=== PATIENT | female | born 2000 | race Caucasian/White ===

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

== ENCOUNTER 2024-01-08 06:16 | Inpatient (IN) ==
--- OUTSIDE RECORDS SUMMARY | 2024-01-08 06:24 | External Medical Summary | Summary of Care ---
Author Name Unknown Organization [facility] Address [address] [place] [address] Phone [phone] Care Team Providers Care Circuit Recorder Name Role Phone Shante Vaughn Primary Care Provider [phone] Reason for Visit * Reason Comments Healthy Beginnings Return Encounter Details Date Type Department Care Team (Late st Contact Info) Description 01/05/2024 11:45 AM EDT Office Visit Gynecology[facility] [address] [place] [address] BackerDomitila CRNP [address] [place] [address] Decreased movements in third trimester, single or unspecified fetus*; Health counseling; Encounter for supervision of normal first in third trimester Allergies Active Allergy Reactions Criticality Noted Date Comments Amoxicillin-Pot Clavulanate Hives 07/02/19 10 hives Penicillins Hives High 06/13/2019 documented as of this encounter (statuses as of 01/05/2024) Medications Medication Sig Dispensed Refills Start Date End Date Status ondansetron ODT (ZOFRAN) 4 MG TBDPIndications:Per sistent headaches,Intractab le migraine with aura without status migrainosus Place 1 Tab on tongue every 8 hours as needed for Nausea. dissolve on tongue. 20 Tab 1 06/08/2017 Active Proventil HFA 108 (90 Base) MCG/ACT Inhalation Aerosol Solution Inhale 2 Puffs by mouth every 4 hours as needed for Cough, Shortness of Breath or Wheezing (And chest tightness). 1 g 04/28/2022 Active Fluticasone Propionate 50 MCG/ACT Nasal Suspension (Flonase) Use 1 spray in each nostril morning and night. May use following nasal saline 16 g 6 04/28/2022 Active Azelastine HCl 0.1 % Nasal Solution (Astelin) Administer 2 Sprays into nostril in the morning and 2 Sprays before bedtime. 30 mL 5 04/28/2022 Active 19 29-1 MG Oral Tablet ChewableIndications : state, incidental Take 1 Each by mouth in the morning. 100 Tablet 3 05/27/2023 Active documented as of this encounter (statuses as of 01/05/2024) Active Problems Problem Noted Date Diagnosed Date Recurrent major depressive disorder 09/19/2023 ASCUS with positive high risk HPV cervical 06/06 Overview: ASCUS/+HPV pap smear 05/2023 Per [facility] needs repeat pap smear in 1 year -- due 05/2024 Health counseling 05/30/2023 Overview: Problem Action Taken Date entered Entered by Date resolved Depression Discuss options with Provider 05/30/2023 Rose Ramos RN 05/30/2023 First NFP discussed Will think over and let us know at next visit 05/30/2023 Rose Ramos RN 05/30/2023 Nausea and vomiting due to Nutrition Review 9 months booklet 05/30/2023 Rose Ramos RN 05/30/2023 Smoking/tobacco abuse Smoking Education- stopped vaging with + upt 05/30/2023 Rose Ramos RN 05/30/2023 Nutrition Due ddate letter given [facility] 05/30/2023 Rose Ramos RN 05/30/2023 Problem Action Taken Date entered Entered by Date resolved Current needs or questions Patient denies having any current needs or questions 06/27/2023 Rose Ramos RN 06/27/2023 Problem Action Taken Date entered Entered by Date resolved Current needs or questions Patient denies having any current needs or questions 07/25/2023 Rose Ramos RN 07/25/2023 Problem Action Taken Date entered Entered by Date resolved Current needs or questions Patient denies having any current needs or questions 09/09/2023 Rose Ramos RN 09/09/2023 Problem Action Taken Date entered Entered by Date resolved Current needs or questions Patient denies having any current needs or questions 09/23/2023 Estee Garcia RN 09/23/2023 Problem Action Taken Date entered Entered by Date resolved Current needs or questions Patient denies having any current needs or questions 10/14/2023 Estee Garcia RN 10/14/2023 Problem Action Taken Date entered Entered by Date resolved Current needs or questions Patient denies having any current needs or questions 11/11/2023 Estee Garcia RN 11/11/2023 Problem Action Taken Date entered Entered by Date resolved Current needs or questions Patient denies having any current needs or questions 11/25/2023 Estee Garcia RN 11/25/2023 Problem Action Taken Date entered Entered by Date resolved Current needs or questions Patient denies having any current needs or questions 12/06/2023 Rose Ramos RN 12/06/2023 Problem Action Taken Date entered Entered by Date resolved Current needs or questions Patient denies having any current needs or questions 12/13/2023 Estee Garcia RN 12/13/2023 Problem Action Taken Date entered Entered by Date resolved Current needs or questions Patient denies having any current needs or questions 12/20/2023 Rose Ramos RN 12/20/2023 Problem Action Taken Date entered Entered by Date resolved Current needs or questions Patient denies having any current needs or questions 12/27/2023 Estee Garcia RN 12/27/2023 Problem Action Taken Date entered Entered by Date resolved Current needs or questions Patient denies having any current needs or questions 01/03/2024 Rose Ramos RN 01/03/2024 Encounter for supervision of normal first in third trimester 05/30/2023 Maternal asthma complicating Depression complicating , antepartum Former smoker 05/30/2023 Major depressive disorder with single episode Rhinitis, nonallergic 04/28/2022 Deviated nasal septum 04/28/2022 Mild persistent asthma without complication 11/2021 Tobacco use disorder 04/28/2022 Migraine without aura and wi th status migrainosus, not intractable 05/20/2016 Generalized anxiety disorder Estimated Date of Delivery Comme nts Yes 01/04/2024 Based on last me nstrual period of 03/30/2023 documented as of this encounter (statuses as of 01/05/2024) Resolved Problems Problem Noted Date Diagnosed Date Resolved Date Mild intermittent asthma wit h (acute) exacerbation 04/27/2022 04/28/2022 Sinus congestion 05/05/2016 05/18/2017 Abnormal results of liver function studies 05/19/2015 05/18/2017 Mood disorder 02/18/2015 05/05/2019 Alcoholism in family 02/18/2015 022 Otitis externa of left ear 01/07/2015 1 07/19/2016 Otalgia of left ear 05/20/2014 03/09/20 15 Dysfunction of eustachian tube 05/20/2014 03/09/2015 Chronic rhinitis 05/20/2014 04/28/2022 PAIN IN LIMB--left 10/26/2010 5 Otalgia 04/14/2010 03/09/2015 Dysfunction of eustachian tube 04/14/2010 03/09/2015 Cough 04/14/2010 03/09/2015 Asthma with severity to be determined 11/13/2009 04/17/2013 Overview: Per Asthma Taxonomy ICD-10 update of inactive term Headache 07/02/2009 05/18/2017 Overview: ICD-10 update of inactive term Chronic rhinitis 07/02/2009 04/14/2010 Acute URI 07/02/2009 03/09/2015 Acute sinusitis 07/02/2009 03/09/2015 Asthma, allergic 11/13/2009 Allergic rhinitis 04/28/2022 Overview: christopher ferro documented as of this encounter (statuses as of 01/05/2024) Immunizations Name Administration Dates Next Due DTaP Dipth/Tet/Acell Pertussis (Infanrix), Peds 09/02/2005,07/31/2001,2000,09/23,2000 HIB PRP-OMP, 3 dose (Pedvax) 07/31/2001,09/24/19,2000 HPV Vaccine, 9-Valent 02/04/2017 Hepatitis B, 0-19 yrs 07/31/2001,2000,03/01/2001 IPV - Polio Virus Vaccine (Inact) 2005,07/31/2001,2000,07/29 MMR - Measles/Mumps/Rubella Vaccine 09/02/2005,0 07/31/2001 Meningococcal B, 2/3-Dose Se greg (TRUMENBA) 01/13/2021 Meningococcal Conjugate Vacc ine (Menactra/Menveo) 02/04/2017,12/28/2012 Meningococcal MCV4P Conjugat e Vaccine (Menactra) 02/04/2017,12/28/2012 PPD 08/31/2023,11/17/2021,10/01/2020 Pneumococcal Conjugate Vacci ne, 7 Valent 2000,2000,2000 Seasonal Influenza Virus Vac cine, Unspecified Formulation 03/09/2019,04/20/2011,02/11/2009 Seasonal Influenza, PF, 6 M & above, IM , (FluLaval or Fluzone) 06/27/2023,03/09/2019 Seasonal Influenza, Split, I IV3, With Preserve, Inj 04/20/2011,02/11/2009 TDAP (age 10 and older)(Boostrix) 10/14/2023 TDAP, Age 7 and older, IM (Adacel) 12/28/2012 Varicella Vaccine (Chicken Pox) 03/25/2011,07/31 documented as of this encounter Social History Tobacco Use Types Packs/Day Years Used Date Smoking Tobacco: Former Vaporizer Passive Smoke Exposure: Never Smokeless Tobacco: Never Comments:Vapes, cigarettes o cc Alcohol Use Standard Drinks/Week Comments Not Currently 0 (1 standard drink = 0.6 oz pur e alcohol) occasionally PHQ-2 Answer Date Recorded PHQ Adult Total Score 1 04/29/2023 Hunger Vital Sign Answer Date Recorded Within the past 12 months, y ou worried that your food would run out before you got the money to buy more. Never true 08/11/19 24 Within the past 12 months, t he food you bought just didn't last and you didn't have money to get more. Never true 08/11/2023 [place] Depression Scale Answer Date Recorded [place] Depression Scale Total 8 12/20/2023 The thought of harming myself has occurred to me . Never 12/20/2023 Childcare Answer Date Recorded Do you feel overwhelmed with taking care of a child, family member or friend? No 08/11/2023 Does your family need help f inding childcare? (Household - for ages 0-17 years) Not on file 08/11/2023 Clothing Answer Date Recorded Have you been unable to get clothing when it was really needed? No 08/11/2023 Is your family able to get c lothes or diapers when needed? (Household - for ages 0-17 years) Not on file 08/11/2023 Personal Safety Answer Date Recorded Do you feel unsafe or have concerns for your saf ety? No 08/11/2023 Do you have concerns for you r family's safety? (Household - for ages 0-17 years) Not on file 08/11/2023 Utilities Answer Date Recorded Do you have trouble paying y our heating, water, or electric bill? No 08/11/2023 Is your family able to pay t he heat, water, or electric bill? (Household - for ages 0-17 years) Not on file 08/11/2023 Does your family have access to good internet? (Household - for ages 0-17 years) Not on file 08/11/2023 Employment Status Answer Date Recorded Are you unemployed or without regular income? No 08/11/2023 Does the household have a re gular source of income? (Household - for ages 0-17 years) Not on file 08/11/2023 Social Connections Answer Date Recorded How often do you feel lonely or isolated from th ose around you? Never 08/11/2023 Financial Resource Strain Answer Date R ecorded Do you have any trouble payi ng for your medications, or do you think you might in the future? No 08/11/2023 Does your family have troubl e paying for medicine? (Household - for ages 0-17 years) Not on file 08/11/2023 Transportation Needs Answer Date Record ed READ ONLY Do you have troubl e getting a ride to medical visits or work? Never True 08/11/2023 Does your family have a hard time getting a ride to doctors visits? (Household - for ages 0-17 years) Not on file 08/11/2023 Has lack of transportation k ept you from medical appointments, meetings, work, or from getting things needed for daily living? Check all that apply. (Adult - for ages 18 years and over) Not on file 08/11/2023 Do you (or your family) have trouble finding or paying for a ride (transportation)? (Household - for ages 0-17 years) Not on file 08/11/2023 Housing Stability Answer Date Recorded Do you currently live in a s helter or have no steady place to sleep at night? No 08/11/2023 READ ONLY Do you think you a re at risk of becoming homeless? No 08/11/2023 Does your family worry about paying for your home or becoming homeless? (Household - for ages 0-17 years) Not on file 0 08/11/2023 Are you homeless or worried that you might be in the future? (Adult - for ages 18 years and over) Not on file Are you (or your family) mariam eless or worried that you might be in the future? (Household - for ages 0-17 years) Not on file Food Insecurity Answer Date Recorded Do you need food for this week? No 08/11/2023 Are you able to get enough f ood for your family? (Household - for ages 0-17 years) Not on file 08/11/2023 Does your family need food t his week? (Household - for ages 0-17 years) Not on file 08/11/2023 Do you always have enough fo od for your family? (Household - for ages 0-17 years) Not on file 08/11/2023 Estimated Date of Delivery Comme nts Yes 01/04/2024 Based on last me nstrual period of 03/30/2023 Sex and Gender Information Value Date Recorded Sex Assigned at Female 05/10/2019 1:17 PM EST Gender Identity Female 05/10/2019 1:17 PM EST Sexual Orientation Straight 05/10/2019 1: 17 PM EST Job Start Date Occupation Industry Not on file Not on file Not on file documented as of this encounter Last Filed Vital Signs Vital Sign Reading Time Taken Comments Blood Pressure 104/72 01/05/2024 10:54 AM EDT Pulse - - Temperature - - Respiratory Rate - - Oxygen Saturation - - Inhaled Oxygen Concentration - - Weight 89.1 kg (196 lb 6.4 oz) 01/05/2024 10:54 AM EDT Height 160 cm (5' 3") 01/05/2024 10:54 AM EDT Body Mass Index 34.79 01/05/2024 10:54 AM EDT documented in this encounter Progress Notes * Domitila Rowland CRNP - 01/05/2024 11:13 AM EDT ASSESSMENT assessment with Non-stress Test completed on 01/05/2024 at 40.1 weeks gestation for indicationof decreased movement heart baseline: 140 bpm Variability: Moderate Decelerations: absent Accelerations: present Contractions: Present x3 NST start time: 1156 NST stop time: 1223 NST strip reviewed, interpreted, and approved by OB provider, TRICIA Arrington . NST strip stored in clinic storage file ANGELY normal today. Has IOL scheduled on Tuesday. Call sooner prn. TRICIA Arrington documented in this encounter Nursing Notes * Jacqueline Stovall LPN - 01/05/2024 10:54 AM EDT 40w1d ANGELY today 13.3cm documented in this encounter Plan of Treatment Upcoming Encounters Date Type Department Care Team (Late st Contact Info) Description 03/15/2024 3:30 PM EDT Office Visit Allergy/Immunology [facility] [place] [address] [facility] [place], [place] [address] Rosie Mckenna PA-C [address] [place] [address] Health Maintenance Due Date Last Done Comments Pneumococcal Vaccine: Pediat rics (0 to 5 Years) and At-Risk Patients (6 to 64 Years) (1 of 2 - PCV) 2006 HPV (Gardasil) Vaccine (2 - 3-dose series) 03/04/2017 02/04/2017 Influenza Vaccine (FLU shot) (#1) 2024 06/27/2023, 03/09/2019, 03/09/2019, Additional history exists Depression Monitoring 04/29/2024 04/29/2023 Gonorrhea / Chlamydia Screen 05/30/2024 05/30/2023, 05/22/2019 Pap Smear 05/30/2026 05/30/2023, 03/07/2022, 05/11/2021 DTaP,Tdap,and Td Vaccines (8 - Td or Tdap) 10/13/2033 10/14/2023, 12/28/2012, 09/02/2005, Additional history exists Hepatitis B Vaccine Completed 07/31/2001, 2000, 2000 MENINGOCOCCAL (MENACTRA/MENVEO) Completed 02/04/2017, 02/04/2017, 12/28/2012, Additional history exists COVID-19 Vaccine Discontinued documented as of this encounter Medical Devices Not on filedocumented as of this encounter Visit Diagnoses Diagnosis Decreased movements in third trimester, single or unspecified fetus- Primary Health counseling Other specified counseling Encounter for supervision of normal first in third trimester Supervision of normal first documented in this encounter Care Teams Circuit Recorder Relationship Specialty Start Date End Date Shante Vaughn [facility] [address] [facility] [address] PCP - General Family Medicine 07/21/18 documented as of this encounter
--- OUTSIDE RECORDS SUMMARY | 2024-01-08 06:25 | External Medical Summary | Summary of Care ---
Author Name Unknown Organization [facility] Address [address] [place] [address] Phone [phone] Care Team Providers Care Removable Prosthodontist Name Role Phone Shante Vaughn DO Primary Care Provider Reason for Visit * Reason Comments Healthy Beginnings Return Encounter Details Date Type Department Care Team (Late st Contact Info) Description 12/13/2023 10:00 AM EDT Office Visit Gynecology/Obstetri renny [facility] [address] [facility] [place] [address] Ashley Smith CRNP [address] [facility] [place] [address] Nurse Foster [facility] Return Addy [address] [place] [address] Encounter for supervision of normal first in third trimester*; Health counseling; ASCUS with positive high risk HPV cervical Allergies Active Allergy Reactions Criticality Noted Date Comments Amoxicillin-Pot Clavulanate Hives 07/02/19 10 hives Penicillins Hives High 06/13/2019 documented as of this encounter (statuses as of 12/13/2023) Medications Medication Sig Dispensed Refills Start Date End Date Status ondansetron ODT (ZOFRAN) 4 MG TBDPIndications:Per sistent headaches,Intractab le migraine with aura without status migrainosus Place 1 Tab on tongue every 8 hours as needed for Nausea. dissolve on tongue. 20 Tab 1 06/08/2017 Active Additional Information Patient not taking.Reported on 12/13/2023 Proventil HFA 108 (90 Base) MCG/ACT Inhalation [...] the morning. 100 Tablet 3 05/27/2023 Active Cefdinir 300 MG Oral Capsule (Omnicef)Indication s:Acute sinusitis, recurrence not specified, unspecified location Take 1 Capsule by mouth in the morning and 1 Capsule before bedtime. For 10 days.. 20 Capsule 09/12/2023 Active Additional Information Patient not taking.Reported on 09/23/2023 Magnesium 200 MG Oral Tablet ChewableIndications :Migraine with aura and without status migrainosus, not intractable Take 200 mg by mouth in the morning. 100 Tablet 3 09/19/2023 Active Additional Information Patient not taking.Reported on 09/23/2023 documented as of this encounter (statuses as of 12/13/2023) Active Problems Problem Noted Date Diagnosed Date [...] Nutrition Review 9 months booklet 05/30/2023 Rose Ramos, JOSE LUIS 05/30/2023 Smoking/tobacco abuse Smoking Education- stopped vaging with + upt 05/30/2023 Rose Ramos RN 05/30/2023 Nutrition Due ddate letter given [facility] 05/30/2023 Rose Ramos RN 05/30/2023 Problem Action [...] or questions 12/06/2023 Rose Ramos RN 12/06/2023 Encounter for supervision of normal first in [...] as of this encounter (statuses as of 12/13/2023) Resolved Problems Problem Noted Date Diagnosed Date [...] allergic 11/13/2009 Allergic rhinitis 04/28/2022 Overview: christopher bluegrass documented as of this encounter (statuses as of 12/13/2023) Immunizations Name Administration Dates Next Due DTaP Dipth/Tet/Acell Pertussis (Infanrix), Peds 09/02/2005,07/31/2001,2000,09/23,2000 HIB PRP-OMP, 3 dose (Pedvax) 07/31/2001,09/24/19,2000 HPV Vaccine, 9-Valent 02/04/2017 Hepatitis B, 0-19 yrs 07/31/2001,2000,01/2001 IPV - Polio Virus Vaccine (Inact) 2005,07/31/2001,2000,07/29 [...] money to buy more. Never true 08/11/19 Within the past 12 months, t he food you bought just didn't last and you didn't have money to get more. Never true 08/11/2023 [place] Depression Scale Answer Date Recorded [place] Depression Scale Total 7 10/14/2023 The thought of harming myself has occurred to me . Never 10/14/2023 Childcare Answer Date Recorded Do you feel [...] Sign Reading Time Taken Comments Blood Pressure 108/62 12/13/2023 10:08 AM EDT Pulse - - Temperature - - Respiratory Rate - - Oxygen Saturation - - Inhaled Oxygen Concentration - - Weight 89 kg (196 lb 3.2 oz) 12/13/2023 10:08 AM EDT Height 160 cm (5' 3") 12/13/2023 10:08 AM EDT Body Mass Index 34.76 12/13/2023 10:08 AM EDT documented in this encounter Progress Notes * Ashley Smith CRNP - 12/13/2023 10:19 AM EDT 36w6d Was at L&D last week with ?ROM and some contractions. Found to not have ROM or active labor. Since then, having less discharge. Having cramping, but no regular contractions. Baby is active, denies bleeding. GBS today, asking for cervical check. Cervix very high, only able to feel posterior lip of cervix, unable to determine dilation. 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 Name of unemployment specialist: TRICIA Buchanan documented in this encounter Nursing Notes * Estee Garcia RN - 12/13/2023 10:07 AM EDT Patient here for GARY visit/GBS 36w6d + FM Having increased cramping No fluid leaking/bleeding Would like cervical check today Patient seen by [facility] Resource Planner. Patient denies any questions or concerns. Estee Garcia RN documented in this encounter Plan of Treatment Upcoming Encounters Date Type Department Care Team (Late st Contact Info) Description 12/20/2023 10:00 AM EDT Office Visit Gynecology/Obstetrics [facility] [address] [facility] [place] [address] Ashley mSith CRNP [address] [place] [address] Nurse Foster [facility] Return Addy [address] [place] [address] 12/27/2023 10:00 AM EDT Office Visit Gynecology/Obstetrics Lety Hutchison [address] [place] [address] Ashley Smith CRNP [address] [place] [address] Nurse Foster [facility] Return Addy [address] [place] [address] 01/03/2024 10:00 AM EDT Office Visit Gynecology/Obstetrics Lety Hutchison [address] [place] [address] Ashley Smith CRNP [address] [place] [address] Nurse Foster [facility] Return Addy [address] [place] [address] 03/15/2024 3:30 PM EDT Office Visit Allergy/Immunology [place] [address] [place] [address] Rosie Mckenna PA-C [address] [place] [address] Pending Results Name Type Priority Associated Diagnoses Date /Time GROUP B STREP CULTURE/PCR Lab Routine Encounter for supervision of normal first in third trimester 12/13/2023 10:22 AM EDT Scheduled Orders Name Type Priority Associated Diagnoses Orde r Schedule GROUP B STREP CULTURE/PCR Lab Routine Encounter for supervision of normal first in third trimester Expected: 12/13/2023, Expires: 12/12/2024 Health Maintenance Due Date Last Done Comments Pneumococcal Vaccine: Pediat rics (0 to 5 Years) and At-Risk Patients (6 to 64 Years) (1 of 2 - PCV) 2006 HPV (Gardasil) Vaccine (2 - 3-dose series) 03/04/2017 02/04/2017 *SPIROMETRY ONCE FOR ASTHMA-ADULT 12/04/2023 Influenza Vaccine (FLU shot) (#1) 2024 06/27/2023, 03/09/2019, 03/09/2019, Additional history exists Depression Monitoring 04/29/2024 04/29/2023 Gonorrhea / Chlamydia Screen 05/30/2024 05/30/2023, 05/22/2019 Pap Smear 05/30/2026 05/30/2023, 03/0 07/2022, 05/11/2021 DTaP,Tdap,and Td Vaccines (8 - Td or Tdap) 10/13/2033 10/14/2023, 12/28/2012, 09/02/2005, Additional history exists Hepatitis B Vaccine Completed 07/31/2001, 2000, 2000 MENINGOCOCCAL (MENACTRA/MENVEO) Completed 02/04/2017, 02/04/2017, 12/28/2012, Additional history exists COVID-19 Vaccine Discontinued documented as of this encounter Medical Devices Not on filedocumented as of this encounter Visit Diagnoses Diagnosis Encounter for supervision of normal first in third trimester- Primary Supervision of normal first Health counseling Other specified counseling ASCUS with positive high risk HPV cervical documented in this encounter Care Teams Removable Prosthodontist Relationship Specialty Start Date End Date Shante Vaughn DO [address] [place] [address] PCP - General Family Medicine 07/21/18 documented as of this encounter
--- OUTSIDE RECORDS SUMMARY | 2024-01-08 06:25 | External Medical Summary | Summary of Care ---
Author Name Unknown Organization [facility] Address [address] [place] [address] Phone [phone] Care Team Providers Care Classroom Instructor Name Role Phone SamShante franklin DO Primary Care Provider Encounter Details Date Type Department Care Team (Late st Contact Info) Description 12/27/2023 Telephone Gynecology/Obstetrics [facility] [address] [place] [address] Ashley Smith CRNP [address] [place] [address] Allergies Active Allergy Reactions Criticality Noted Date Comments Amoxicillin-Pot Clavulanate Hives 07/02/19 10 hives Penicillins Hives High 06/13/2019 documented as of this encounter (statuses as of 12/27/2023) Medications Medication Sig Dispensed Refills Start Date [...] as of this encounter (statuses as of 12/27/2023) Active Problems Problem Noted Date Diagnosed Date [...] RN 05/30/2023 Nutrition Due ddate letter given [facility] 05/30/2023 Rose Ramos RN 05/30/2023 Problem Action [...] or questions 12/27/2023 Estee Garcia RN 12/27/2023 Encounter for supervision of normal first in [...] as of this encounter (statuses as of 12/27/2023) Resolved Problems Problem Noted Date Diagnosed Date [...] as of this encounter (statuses as of 12/27/2023) Immunizations Name Administration Dates Next Due DTaP Dipth/Tet/Acell Pertussis (Infanrix), Peds 09/02/2005,07/31/2001,2000,09/23,2000 HIB PRP-OMP, 3 dose (Pedvax) 07/31/2001,09/24/19 01,2000 HPV Vaccine, 9-Valent 02/04/2017 Hepatitis B, 0-19 [...] money to get more. Never true 08/11/2023 [place] Depression Scale Answer Date Recorded [place] Depression Scale Total 8 12/20/2023 The thought [...] on file documented as of this encounter Miscellaneous Notes * Telephone Encounter - Estee Garcia RN - 12/27/2023 10:29 AM EDT Patient's IOL was rescheduled for 8/19 , please update schedule/make crutching contractor provider aware. Pt is aware. documented in this encounter Plan of Treatment Upcoming Encounters Date Type Department Care Team (Late st Contact Info) Description 01/03/2024 10:00 AM EDT Office Visit Gynecology/Obstetrics Lety Hutchison [address] [facility] [place] [address] Ashley Smith CRNP [address] [place] [address] Nurse Foster Healthy Beginnings Return Addy [address] [place] [address] 03/15/2024 3:30 PM EDT Office Visit Allergy/Immunology [facility] [address] [place] [address] Rosie Mckenna PA-C 200 [facility] [place] [address] Health Maintenance Due Date Last Done Comments [...] Not on filedocumented as of this encounter Care Teams Classroom Instructor Relationship Specialty Start Date End Date Shante Vaughn DO [address] [place] [address] PCP - General Family Medicine 07/21/18 documented as of this encounter
--- OUTSIDE RECORDS SUMMARY | 2024-01-08 06:25 | External Medical Summary | Summary of Care ---
Author Name Unknown Organization [facility] Address [address] [place] [address] Phone [phone] Care Team Providers Care Face And Fill Packer Name Role Phone Shante Vaughn DO Primary Care Provider Reason for Visit * Reason Comments Healthy Beginnings Return Encounter Details Date Type Department Care Team (Late st Contact Info) Description 01/03/2024 10:00 AM EDT Office Visit Gynecology/Obstetri renny Hutchison [address] [facility] [place] [address] Ashley Smith CRNP [address] [facility] [place] [address] Nurse Foster Healthy Beginnings Return Addy [address] [place] [address] Encounter for supervision of normal first in third trimester*; Health counseling; ASCUS with positive high risk HPV cervical Allergies Active Allergy Reactions Criticality Noted Date Comments Amoxicillin-Pot Clavulanate Hives 07/02/19 10 hives Penicillins Hives High 06/13/2019 documented as of this encounter (statuses as of 01/03/2024) Medications Medication Sig Dispensed Refills Start Date [...] as of this encounter (statuses as of 01/03/2024) Active Problems Problem Noted Date Diagnosed Date [...] RN 05/30/2023 Nutrition Due ddate letter given [facility] 05/30/2023 Rose Ramos RN 05/30/2023 Problem Action [...] as of this encounter (statuses as of 01/03/2024) Resolved Problems Problem Noted Date Diagnosed Date [...] Asthma, allergic 11/13/2009 Allergic rhinitis 04/28/2022 Overview: [place] documented as of this encounter (statuses as of 01/03/2024) Immunizations Name Administration Dates Next Due DTaP [...] money to get more. Never true 08/11/2023 Romance Depression Scale Answer Date Recorded Romance Depression Scale Total 8 12/20/2023 The thought [...] Sign Reading Time Taken Comments Blood Pressure 108/68 01/03/2024 10:07 AM EDT Pulse - - Temperature - - Respiratory Rate - - Oxygen Saturation - - Inhaled Oxygen Concentration - - Weight 88.9 kg (196 lb) 01/03/2024 10:07 AM EDT Height - - Body Mass Index 34.72 12/27/2023 10:15 AM EDT documented in this encounter Progress Notes * Ashley Smith CRNP - 01/03/2024 10:27 AM EDT 39w6d No concerns. Hoping to deliver soon. Baby is active. No regular contractions, just some cramping. Denies bleeding or LOF. Asking for cervical check. Cervix ?1cm/high. Difficult to reach. Has IOL 01/08. Certified Appliance Service Technician Documentation Provider requested biological aide. Name of biological aide: TRICIA Buchanan * Katelyn Gay MED ASSIST - 01/03/2024 10:07 AM EDT 39w6d Denies vaginal bleeding/rom + movements Requesting cervical check today documented in this encounter Nursing Notes * Rose Ramos RN - 01/03/2024 10:32 AM EDT Patient seen by [facility] Baby Attendant. documented in this encounter Plan of Treatment Upcoming Encounters Date Type Department Care Team (Late st Contact Info) Description 03/15/2024 3:30 PM EDT Office Visit Allergy/Immunology [place] 200 [facility] [place] [address] Rosie Mckenna PA-C 200 [facility] [place] [address] Health Maintenance Due Date Last Done Comments [...] cervical documented in this encounter Care Teams Face And Fill Packer Relationship Specialty Start Date End Date Shante Vaughn DO [address] [facility] [address] PCP - General Family Medicine 07/21/18 documented as of this encounter
--- OUTSIDE RECORDS SUMMARY | 2024-01-08 06:25 | External Medical Summary ---
Author Name Unknown Address Unknown Organization K01:[facility] [address] [place] [address] Laboratory Report Ordering Provider Test Date Status CONSTANCE CORMIER 12/13/2023 10:22:03 Final Observation Date Value Abnormality Reference (Units ) Status Streptococcus agalactiae DNA [Presence] in Specimen by EVI with probe detection 12/13/2023 10:22:03 Negative Negative Final No Group B Streptococcus det ected by culture-enhanced PCR (amplified probe). GBS GBSCT - [facility] 12/13/2023 10:22:03 0.0 Final GBS SPCCT - [facility] 12/13/2023 10:22:03 32.2 Final Performing Location [facility] - [address] [place] [address]
--- OUTSIDE RECORDS SUMMARY | 2024-01-08 06:25 | External Medical Summary | Summary of Care ---
Author Name Unknown Organization [facility] Address [address] [place] [address] Phone [phone] Care Team Providers Care Administrative Services Assistant Name Role Phone Shante Vaughn Primary Care Provider Reason for Visit * Reason Comments Return Visit Encounter Details Date Type Department Care Team (Late st Contact Info) Description 12/27/2023 10:00 AM EDT Office Visit Gynecology/Obstetri cs Namryan Hutchison [address] [facility] [place] [address] Ashley Smith CRNP [address] [facility] [place] [address] Nurse Foster Healthy Beginnings Return Addy [address] [place] [address] Encounter for supervision of normal first in [...] RN 05/30/2023 Nutrition Due ddate letter given [facility] 05/30/2023 Rose Ramos RN 05/30/2023 Problem Action [...] money to get more. Never true 08/11/2023 [place] Depression Scale Answer Date Recorded [place] Depression Scale Total 8 12/20/2023 The thought [...] Sign Reading Time Taken Comments Blood Pressure 110/66 12/27/2023 10:15 AM EDT Pulse - - Temperature - - Respiratory Rate - - Oxygen Saturation - - Inhaled Oxygen Concentration - - Weight 89.4 kg (197 lb) 12/27/2023 10:15 AM EDT Height 160 cm (5' 3") 12/27/2023 10:15 AM EDT Body Mass Index 34.9 12/27/2023 10:15 AM EDT documented in this encounter Progress Notes * Ashley Smith CRNP - 12/27/2023 10:27 AM EDT 38w6d No concerns. Baby is active. No regular contractions, no bleeding or LOF. IOL 01/08 TRICIA Calabrese * Wendie Whitley LPN - 12/27/2023 10:15 AM EDT 38w6d Denies any issues documented in this encounter Nursing Notes * Estee Garcia RN - 12/27/2023 10:31 AM EDT Patient seen by [facility] Foreman Or Supervisor And Operator. Patient denies any questions or concerns. Estee Garcia RN documented in this encounter Plan of Treatment Upcoming Encounters Date Type Department Care Team (Late st Contact Info) Description 01/03/2024 10:00 AM EDT [facility] [address] [place] [address] Ashley Smith CRNP [address] [place] [address] Nurse Foster Healthy Beginnings Return Addy [address] [place] [address] 03/15/2024 3:30 PM EDT Office Visit Allergy/Immunology [place] 200 [facility] [place] [address] Rosie Mckenna PA-C 200 [facility] [place] [address] Health Maintenance Due Date Last Done Comments [...] cervical documented in this encounter Care Teams Administrative Services Assistant Relationship Specialty Start Date End Date Shante Vaughn DO [address] [facility] [place] [address] PCP - General Family Medicine 07/21/18 documented as of this encounter
--- OUTSIDE RECORDS SUMMARY | 2024-01-08 06:25 | External Medical Summary | Summary of Care ---
Author Name Unknown Organization [facility] Address [address] [place] [address] Phone [phone] Care Team Providers Care Refrigeration Operator Name Role Phone SamShante franklin DO Primary Care Provider Encounter Details Date Type Department Care Team (Late st Contact Info) Description 12/20/2023 Telephone Gynecology/Obstetrics [facility] [address] [place] [address] Ashley Smith CRNP [address] [place] [address] Allergies Active Allergy Reactions Criticality Noted Date Comments Amoxicillin-Pot Clavulanate Hives 07/02/19 10 hives Penicillins Hives High 06/13/2019 documented as of this encounter (statuses as of 12/20/2023) Medications Medication Sig Dispensed Refills Start Date [...] as of this encounter (statuses as of 12/20/2023) Active Problems Problem Noted Date Diagnosed Date [...] RN 05/30/2023 Nutrition Due ddate letter given [facility] 05/30/2023 Rose Ramos RN 05/30/2023 Problem [...] or questions 12/20/2023 Rose Ramos RN 12/20/2023 Encounter for supervision of normal first in [...] as of this encounter (statuses as of 12/20/2023) Resolved Problems Problem Noted Date Diagnosed Date [...] as of this encounter (statuses as of 12/20/2023) Immunizations Name Administration Dates Next Due DTaP [...] money to get more. Never true 08/11/2023 [place] Depression Scale Answer Date Recorded [place] Depression Scale Total 7 10/14/2023 The thought [...] 08/11/2023 Does the household have a re lar source of income? (Household - for ages [...] on file documented as of this encounter Plan of Treatment Upcoming Encounters Date Type Department Care Team (Late st Contact Info) Description 12/27/2023 10:00 AM EDT Office Visit Gynecology/Obstetrics Lety Hutchison [address] [place] [address] Ashley Smith CRNP [address] [place] [address] Nurse Foster Healthy Beginnings Return Addy [address] [place] [address] 01/03/2024 10:00 AM EDT Office Visit Gynecology/Obstetrics Lety Hutchison [address] [place] [address] Ashley Smith CRNP [address] [place] [address] Nurse Foster [facility]nings Return Addy [address] [place] [address] 03/15/2024 3:30 PM EDT Office Visit Allergy/Immunology [place] 200 [facility] [place] [address] Rosie Mckenna PA-C 200 [facility] [place] [address] Health Maintenance Due Date Last Done Comments [...] Completed 02/04/2017, 02/04/2017, 12/28/2012, Additional history exists HIV Screening Completed 05/30/2023 Hepatitis C Screening Completed 05/30/2023 , 05/30/2023, 05/30/2023 COVID-19 Vaccine Discontinued documented as of this encounter Medical Devices Not on filedocumented as of this encounter Care Teams Refrigeration Operator Relationship Specialty Start Date End Date Shante Vaughn DO [address] [place] [facility] [place] [address] PCP - General Family Medicine 07/21/18 documented as of this encounter
--- OUTSIDE RECORDS SUMMARY | 2024-01-08 06:25 | External Medical Summary | Summary of Care ---
Author Name Unknown Organization [facility] Address [address] [place] [address] Phone [phone] Care Team Providers Care Deputy Treasurer Name Role Phone Shante Vaughn Primary Care Provider Reason for Visit * Reason Comments Healthy Beginnings Return Encounter Details Date Type Department Care Team (Late st Contact Info) Description 12/20/2023 10:00 AM EDT Office Visit Gynecology/Obstetri renny Hutchison [address] [email or web address] [place] [address] Ashley Smith CRNP [address] [place] [address] Nurse Foster Healthy Beginnings Return Addy [address] [place] [address] Encounter for supervision of normal first in third trimester*; Health counseling; ASCUS with positive high risk HPV cervical Allergies Active Allergy Reactions Criticality Noted Date Comments Amoxicillin-Pot Clavulanate Hives 07/02/19 10 hives Penicillins Hives High 06/13/2019 documented as of this encounter (statuses as of 12/20/2023) Medications Medication Sig Dispensed Refills Start Date End Date Status ondansetron ODT (ZOFRAN) 4 MG TBDPIndications:P ersistent headaches,Intract able migraine with aura without status migrainosus Place [...] 04/28/2022 Active 19 29-1 MG Oral Tablet ChewableIndicatio ns: state, incidental Take 1 Each by mouth in the morning. 100 Tablet 3 05/27/2023 Active Cefdinir 300 MG Oral Capsule (Omnicef)Indicati ons:Acute sinusitis, recurrence not specified, unspecified location Take 1 Capsule by mouth in the morning and 1 Capsule before bedtime. For 10 days.. 20 Capsule 09/12/2023 4 Discontinue d(Medicatio n List Clean Up) Magnesium 200 MG Oral Tablet ChewableIndicatio ns:Migraine with aura and without status migrainosus, not intractable Take 200 mg by mouth in the morning. 100 Tablet 3 09/19/2023 4 Discontinue d(Medicatio n List Clean Up) documented as of this encounter (statuses as [...] us know at next visit 05/30/2023 Rose Ramos, JOSE LUIS 05/30/2023 Nausea and vomiting due to Nutrition Review 9 months booklet 05/30/2023 Rose Ramos, JOSE LUIS 05/30/2023 Smoking/tobacco abuse Smoking Education- stopped vaging with + upt 05/30/2023 Rose Ramos, JOSE LUIS 05/30/2023 Nutrition Due ddate letter given [facility] 05/30/2023 Rose Ramos, JOSE LUIS 05/30/2023 Problem Action Taken Date entered Entered [...] any current needs or questions 10/14/2023 Estee Garcia, JOSE LUIS 10/14/2023 Problem Action Taken Date entered Entered by Date resolved Current needs or questions Patient denies having any current needs or questions 11/11/2023 Estee Garcia, JOSE LUIS 11/11/2023 Problem Action Taken Date entered Entered by Date resolved Current needs or questions Patient denies having any current needs or questions 11/25/2023 Estee Garcia, RN 11/25/2023 Problem Action Taken Date entered [...] Vaccine, 9-Valent 02/04/2017 Hepatitis B, 0-19 yrs 07/31/2001,2000,0301/2001 IPV - Polio Virus Vaccine (Inact) 2005,07/31/2001,2000,07/29 [...] money to get more. Never true 08/11/2023 [place] Depression Scale Answer Date Recorded [place] Depression Scale Total 7 10/14/2023 The thought [...] Sign Reading Time Taken Comments Blood Pressure 116/74 12/20/2023 9:57 AM EDT Pulse - - Temperature - - Respiratory Rate - - Oxygen Saturation - - Inhaled Oxygen Concentration - - Weight 88.9 kg (196 lb) 12/20/2023 9:57 AM EDT Height 160 cm (5' 3") 12/20/2023 9:57 AM EDT Body Mass Index 34.72 12/20/2023 9:57 AM EDT documented in this encounter Progress Notes * Ashley Smith CRNP - 12/20/2023 10:19 AM EDT 37w6d No concerns. Some irregular contractions, denies LOF, bleeding. Baby is active. Discussed IOL around 41w, is agreeable. TRICIA Calabrese documented in this encounter Nursing Notes * Rose Ramos RN - 12/20/2023 10:11 AM EDT Patient seen by [facility] Insulation Packer. * Jacqueline Stovall LPN - 12/20/2023 10:01 AM EDT 37w6d Denies concerns documented in this encounter Plan of Treatment Upcoming Encounters Date Type Department Care Team (Late st Contact Info) Description 12/27/2023 10:00 AM EDT Office Visit Gynecology/Obstetrics Lety Hutchison [address] [place] [address] Ashley Smith CRNP [address] [place] [address] Nurse Foster Healthy Beginning Return Addy [address] [place] [address] 01/03/2024 10:00 AM EDT Office Visit Gynecology/Obstetrics Lety Hutchison [address] [place] [address] Ashley Smith CRNP [address] [place] [address] [facility] Return Addy [address] [place] [address] 03/15/2024 3:30 PM EDT Office Visit Allergy/Immunology [facility] 200 [place] [address] Rosie Mckenna PA-C 200 [facility] [place] [address] Health Maintenance Due Date Last Done Comments [...] cervical documented in this encounter Care Teams Deputy Treasurer Relationship Specialty Start Date End Date Shante Vaughn DO [address] [place] [address] PCP - General Family Medicine 07/21/18 documented as of this encounter
--- OUTSIDE RECORDS SUMMARY | 2024-01-08 06:25 | External Medical Summary | Summary of Care ---
Author Name Unknown Organization [facility] Address [address] [place] [address] Phone [phone] Care Team Providers Care Hospice Liaison Name Role Phone SamShante franklin DO Primary Care Provider Encounter Details Date Type Department Care Team (Late st Contact Info) Description 12/20/2023 Telephone Gynecology/Obstetrics [facility] [address] [place] [address] Ashley Smith CRNP [address] [place] [address] Allergies Active Allergy Reactions Criticality Noted Date [...] Depression Discuss options with Provider 05/30/2023 Rose Raoms RN 05/30/2023 First NFP discussed Will think over and let us know at next visit 05/30/2023 Rose Ramos RN 05/30/2023 Nausea and vomiting due to Nutrition Review 9 months booklet 05/30/2023 Rose Ramos RN 05/30/2023 Smoking/tobacco abuse Smoking Education- stopped vaging with + upt 05/30/2023 Rose Ramos RN 05/30/2023 Nutrition Due ddate letter given [facility] 05/30/2023 Rose Ramos RN 05/30/2023 Problem [...] money to get more. Never true 08/11/2023 [place] Depression Scale Answer Date Recorded [place] Depression Scale Total 7 10/14/2023 The thought [...] Gynecology/Obstetrics Lety Hutchison [address] [place] [address] Ashley Smith CRNP [address] [place] [address] Nurse Foster [facility] Beginnings Return Addy [address] [place] [address] 01/03/2024 10:00 AM EDT Office Visit Gynecology/Obstetrics Lety Hutchison [address] [place] [address] Ashley Smith CRNP [address] [place] [address] Nurse Foster Healthy Beginnings Return Addy [address] [place] [address] 03/15/2024 3:30 PM EDT Office Visit Allergy/Immunology [place] [address] [place] [address] Rosie Mckenna PA-C [address] [place] [address] Health Maintenance Due Date Last Done Comments [...] filedocumented as of this encounter Care Teams Hospice Liaison Relationship Specialty Start Date End Date Shante Vaughn DO [address] [place] [facility] [place] [address] PCP - General Family Medicine 07/21/18 documented as of this encounter
--- OUTSIDE RECORDS SUMMARY | 2024-01-08 06:25 | External Medical Summary | Summary of Care ---
Author Name Unknown Organization [facility] Address [address] [place] [address] Phone [phone] Care Team Providers Care Hand Scudder Name Role Phone Shante Vaughn Primary Care Provider Encounter Details Date Type Department Care Team (Late st Contact Info) Description 12/07/2023 Result Scan Unspecified Department <No scans attached> Allergies Active Allergy Reactions Criticality Noted Date Comments Amoxicillin-Pot Clavulanate Hives 07/02/19 10 hives Penicillins Hives High 06/13/2019 documented as of this encounter (statuses as of 12/08/2023) Medications Medication Sig Dispensed Refills Start Date [...] as of this encounter (statuses as of 12/08/2023) Active Problems Problem Noted Date Diagnosed Date [...] RN 05/30/2023 Nutrition Due ddate letter given [facility] 05/30/2023 Rose Ramos RN 05/30/2023 Problem [...] as of this encounter (statuses as of 12/08/2023) Resolved Problems Problem Noted Date Diagnosed Date [...] as of this encounter (statuses as of 12/08/2023) Immunizations Name Administration Dates Next Due DTaP [...] money to get more. Never true 08/11/2023 [place] Depression Scale Answer Date Recorded [place] Depression Scale Total 7 10/14/2023 The thought [...] No 08/11/2023 Does the household have a [facility] source of income? (Household - for ages [...] Description 12/13/2023 10:00 AM EDT Office Visit Gynecology/Obstetrics Lety Hutchison [address] [place] [address] Ashley Smith CRNP [address] [place] [address] Nurse Foster [facility]nings Return Addy [address] [place], [place] [address] 12/20/2023 10:00 AM EDT Office Visit Gynecology/Obstetrics Lety Hutchison [address] [place], [place] [address] Ashley Smith, RESIDENTIAL DRIVER [address] [place] [address] Nurse Foster [facility] Beginnings Return Addy [address] [place], [place] [address] 12/27/2023 10:00 AM EDT Office Visit Gynecology/Obstetrics Lety Hutchison [address] [place], [place] [address] Ashley Smith, RESIDENTIAL DRIVER [address] [place], [place] [address] Nurse Foster [facility]nings Return Addy [address] [place], [place] [address] 01/03/2024 10:00 AM EDT Office Visit Gynecology/Obstetrics Lety Hutchison [address] [place] [address] Ashley Smith, RESIDENTIAL DRIVER [address] [place], [place] [address] Nurse Foster [facility]nings Return Addy [address] [place], [place] [address] 03/15/2024 3:30 PM EDT Office Visit Allergy/Immunology [facility] [place] [address] [facility] [place] [address] Rosie Mckenna PA-C [address] [place] [address] Health Maintenance Due Date Last Done Comments [...] 05/30/2024 05/30/2023, 05/22/2019 Pap Smear 05/30/2026 05/30/2023, 07/2022, 05/11/2021 DTaP,Tdap,and Td Vaccines (8 - Td or Tdap) 10/13/2033 10/14/2023, 12/28/2012, 09/02/2005, Additional history exists Hepatitis B Vaccine Completed 07/31/2001, 2000, 2000 MENINGOCOCCAL (MENACTRA/MENVEO) Completed 02/04/2017, 02/04/2017, 12/28/2012, Additional history exists COVID-19 Vaccine Discontinued documented as of this encounter Medical Devices Not on filedocumented as of this encounter Procedures Procedure Name Priority Date/Time Associated Diagnosis Comments OUTSIDE LAB RESULTS 12/07/2023 documented in this encounter Results * OUTSIDE LAB RESULTS (12/07/2023) 12/07/2023 No Physician Data Unknown LABORATORY documented in this encounter Care Teams Hand Scudder Relationship Specialty Start Date End Date Shante Vaughn DO [address] [place] [address] PCP - General Family Medicine 07/21/18 documented as of this encounter
--- OUTSIDE RECORDS SUMMARY | 2024-01-08 06:25 | External Medical Summary | Summary of Care ---
Author Name Unknown Organization [facility] Address [address] [place] [address] Phone [phone] Care Team Providers Care Sugar Controller Name Role Phone Shante Vaughn Primary Care Provider Reason for Visit * Reason Onset Date Comments Fax 12/15/2023 Encounter Details Date Type Department Care Team (Late st Contact Info) Description 12/15/2023 Telephone Gynecology/Obstetrics [facility] [address] [place] [address] Services, Scheduling [address] [place] [address] Fax Allergies Active Allergy Reactions Criticality Noted Date Comments Amoxicillin-Pot Clavulanate Hives 07/02/19 10 hives Penicillins Hives High 06/13/2019 documented as of this encounter (statuses as of 12/15/2023) Medications Medication Sig Dispensed Refills Start Date [...] as of this encounter (statuses as of 12/15/2023) Active Problems Problem Noted Date Diagnosed Date [...] RN 05/30/2023 Nutrition Due ddate letter given [facility] 05/30/2023 Rose Ramos RN 05/30/2023 Problem [...] or questions 12/13/2023 Estee Garcia RN 12/13/2023 Encounter for supervision of normal first in [...] as of this encounter (statuses as of 12/15/2023) Resolved Problems Problem Noted Date Diagnosed Date [...] as of this encounter (statuses as of 12/15/2023) Immunizations Name Administration Dates Next Due DTaP [...] money to get more. Never true 08/11/2023 [place] Depression Scale Answer Date Recorded [place] Depression Scale Total 7 10/14/2023 The thought [...] No 08/11/2023 Does the household have a [facility] source of income? (Household - for ages [...] Telephone Encounter - Estee Garcia RN - 12/15/2023 1:37 PM EDT Patient letter printed and sent. My G sent to make patient aware. * Telephone Encounter - Ellen Hernandez OSA - 12/15/2023 1:24 PM EDT Please assist if possible. Thanks! * Telephone Encounter - Malena Montana OSA - 12/15/2023 1:21 PM EDT PT needs a due date sent to [facility] Fax [phone] Please assist [phone] Thank you documented in this encounter Plan of Treatment Upcoming Encounters Date Type Department Care Team (Late st Contact Info) Description 12/20/2023 10:00 AM EDT Office Visit Gynecology/Obstetrics Lety Hutchison [address] [place] [address] Ashley Smith CRNP [address] [place] [address] Nurse Foster [facility] Addy [address] [place] [address] 12/27/2023 10:00 AM EDT Office Visit Gynecology/Obstetrics Lety Hutchison [address] [place] [address] Ashley Smith CRNP [address] [place] [address] Nurse Foster [facility] Addy [address] [place] [address] 01/03/2024 10:00 AM EDT Office Visit Gynecology/Obstetrics Lety Hutchison [address] [place] [address] Ashley Smith CRNP [address] [place] [address] Nurse Foster [facility] Return Addy [address] [place] [address] 03/15/2024 3:30 PM EDT Office Visit Allergy/Immunology Hong Ramos [place] [address] [place] [address] Rosie Mckenna PA-C [address] [place] [address] Health Maintenance Due Date Last Done Comments [...] filedocumented as of this encounter Care Teams Sugar Controller Relationship Specialty Start Date End Date Shante Vaughn DO [address] [place] [address] PCP - General Family Medicine 07/21/18 documented as of this encounter
--- OUTSIDE RECORDS SUMMARY | 2024-01-08 06:25 | External Medical Summary | Summary of Care ---
Author Name Unknown Organization [facility] Address [address] [place] [address] Phone [phone] Care Team Providers Care Database Programmer Analyst Name Role Phone Shante Vaughn DO Primary Care Provider Reason for Visit * Reason Comments [facility] Return Encounter Details Date Type Department Care Team (Late st Contact Info) Description 12/13/2023 10:00 AM EDT Office Visit Gynecology/Obstetri renny Hutchison [address] [facility] [place] [address] Ashley Smith CRNP [address] [facility] [place] [address] Nurse Foster [facility] Return Addy [address] [place] [address] Encounter for supervision of normal first in [...] money to get more. Never true 08/11/2023 [place] Depression Scale Answer Date Recorded [place] Depression Scale Total 7 10/14/2023 The thought [...] lip of cervix, unable to determine dilation. Mobile Nurse Documentation Provider requested cardiovascular technician. Name of cardiovascular technician: TRICIA Buchanan documented in this encounter Nursing Notes * Estee Garcia RN - 12/13/2023 10:07 AM EDT Patient here for GARY visit/GBS 36w6d + FM Having increased cramping No fluid leaking/bleeding Would like cervical check today have you cut down with your smoking n/a have you quit n/a have you seen a weeder no have you seen a social work manager no are you receiving counseling no have you received dental care during your no are you enrolled in WIC yes do you receive food stamps or grover assistance no Patient seen by [email or web address] Chief Passenger Ship Steward/Stewardess. Patient denies any questions or concerns. Estee Garcia, RN documented in this encounter Plan of Treatment Upcoming Encounters Date Type Department Care Team (Late st Contact Info) Description 12/20/2023 10:00 AM EDT Office Visit Gynecology/Obstetrics Lety Hutchison [address] [place] [address] Ashley Smith CRNP [address] [place] [address] Nurse Foster [facility] Return Addy [address] [place] [address] 12/27/2023 10:00 AM EDT Office Visit Gynecology/Obstetrics Lety Hutchison [address] [place] [address] Ashley Smith CRNP [address] [place] [address] Nurse Foster [facility] Return Addy [address] [place] [address] 01/03/2024 10:00 AM EDT Office Visit Gynecology/Obstetrics Lety Hutchison [address] [place] [address] Ashley Smith CRNP [address] [place] [address] Nurse Foster [facility] Return Addy [address] [place] [address] 03/15/2024 3:30 PM EDT Office Visit Allergy/Immunology Hong Ramos [place] [address] [place] [address] Rosie Mckenna PA-C [address] [facility] [place], [place] [address] Pending Results Name Type Priority Associated Diagnoses [...] 05/30/2024 05/30/2023, 05/22/2019 Pap Smear 05/30/2026 05/30/2023, 0307/2022, 05/11/2021 DTaP,Tdap,and Td Vaccines (8 - Td [...] cervical documented in this encounter Care Teams Database Programmer Analyst Relationship Specialty Start Date End Date Shante Vaughn DO [address] [facility] [place] [address] PCP - General Family Medicine 07/21/18 documented as of this encounter
--- OUTSIDE RECORDS SUMMARY | 2024-01-08 06:25 | External Medical Summary | Summary of Care ---
Author Name Unknown Organization [facility] Address [address] [place] [address] Phone [phone] Care Team Providers Care Winderman Name Role Phone Shante Vaughn DO Primary Care Provider [phone] Reason for Visit * Reason Comments [facility] Return Encounter Details Date Type Department Care Team (Late st Contact Info) Description 01/03/2024 10:00 AM EDT Office Visit Gynecology/Obstetri renny Hutchison [address] [facility] [place] [address] Ashley Smith CRNP [address] [facility] [place] [address] Nurse Foster [facility] Return Addy [address] [place] [address] Encounter for supervision of normal first in [...] RN 05/30/2023 Nutrition Due ddate letter given [facility] 05/30/2023 Rose Ramos RN 05/30/2023 [...] money to get more. Never true 08/11/2023 [place] Depression Scale Answer Date Recorded [place] Depression Scale Total 8 12/20/2023 The thought [...] ?1cm/high. Difficult to reach. Has IOL 01/08. Lead Applier Documentation Provider requested ethylbenzene converter helper. Name of ethylbenzene converter helper: TRICIA Buchanan * Katelyn Gay MED ASSIST - 01/03/2024 10:07 AM EDT 39w6d Denies vaginal bleeding/rom + movements Requesting cervical check today documented in this encounter Nursing Notes * Rose Ramos RN - 01/03/2024 10:32 AM EDT Patient seen by [facility] Senior Drupal Developer. documented in this encounter Plan of Treatment Upcoming Encounters Date Type Department Care Team (Late st Contact Info) Description 03/15/2024 3:30 PM EDT Office Visit Allergy/Immunology [place] [address] [facility] [place] [address] Rosie Mckenna PA-C [address] [facility] [place] [address] Health Maintenance Due Date Last Done Comments [...] cervical documented in this encounter Care Teams [place]inderman Relationship Specialty Start Date End Date Shante Vaughn DO [address] [facility] [place] [address] PCP - General Family Medicine 07/21/18 documented as of this encounter
[2024-01-08] MEDS ORDERED: LIDOCAINE 1% LOCAL 20 ML VIAL INFIL PRN (07:01)
[2024-01-08] MEDS ORDERED: OXYTOCIN 30 UNITS/NSS 30 UNITS/500 ML BAG IV PRN ×2 (07:01→16:59)
[2024-01-08 07:25] LABS: Hematocrit (blood only) 36.3 % (37.0-47.0); Hemoglobin 12.3 g/dl (12.0-16.0); Mean Corpuscular Hemoglobin 29.3 pg (25.0-34.0); Mean Corpuscular Hgb Conc 33.9 g/dL (32.0-36.0); Mean Corpuscular Volume 86.4 fL (80.0-100.0); Mean Platelet Volume 12.3 fL (9.4-12.4); Platelet Count 138 K/uL (130-400); RDW Standard Deviation 43.4 fL (36.4-46.3); White Blood Count 9.43 K/ul (4.8-10.8)
[2024-01-08] MEDS: LACTATED RINGER'S 1,000 ML IV PRN (08:30)
[2024-01-08] MEDS: ONDANSETRON INJ 2 MG/ML 2 ML VIAL IV PRN (08:58)
--- NOTE | 2024-01-08 09:11 | Anesthesiology Consultation ---
Date of Service January 08, 2024 Assessment & Plan (1) Encounter for pre-operative examination: Chart Review Chart Review: Acceptable Risk for Labor Epidural History Height/Weight Height: 5 ft 2 in Weight: 88.904 kg Allergies Allergy/AdvReac Type Severity Reaction Status Date / Time amoxicillin Allergy Severe HIVES Verified 10/10/23 00:02 clavulanic acid Allergy Severe HIVES Verified 10/10/23 00:02 Penicillins Allergy Intermediate RASH, ITCHY Verified 10/10/23 00:02 Medications Home Medications Medication Instructions Recorded Confirmed Last Taken albuterol sulfate 90 mcg/actuation 2 inh inhalation Q6H PRN shortness 10/09/23 01/08/24 Unknown aerosol inhaler of breath or wheezing #8.5 grams vit no.133-ferrous 1 tab PO DAILY 10/10/23 01/08/24 01/07/24 fumarate 28 mg-folic acid 800 mcg tablet () Active Medications Generic Name Dose Route Start Last Admin Trade Name Freq PRN Reason Stop Dose Admin Lactated Ringer's 1,000 mls @ 125 mls/hr 01/08/24 07:01 01/08/24 09:00 Lr IV 01/10/24 07:00 999 mls/hr .Q8H PRN Infusion L&D Protocol Protocol Ondansetron HCl 4 mg 01/08/24 08:40 01/08/24 08:58 Ondansetron Inj 2 Mg/Ml 2 Ml Vial IV 02/07/24 08:39 4 mg Q4H PRN Administration Nausea Past Medical History Medical History (Updated 01/08/24 @ 09:11 by David Ramirez MD) Asthma Anxiety Past Surgical History Surgical History (Updated 01/08/24 @ 09:11 by David Ramirez MD) No significant past surgical history Social History Smoking Status: Never smoker Hx Alcohol Use: No Hx Substance Use: No substance use type: does not use Physical Exam Vital Signs Last Vital Signs Temp 36.9 C 01/08/24 07:19 Pulse 96 H 01/08/24 08:30 Resp 18 01/08/24 07:19 BP 117/74 01/08/24 08:30 Testing Laboratory Results 01/08/24 07:12
[2024-01-08] MEDS: fentANYL 2 MCG/ML BUPIVacaine 0.125%-NSS 100ML BAG ONE (09:53)
[2024-01-08] MEDS: BUPIVACAINE 0.25% PF 30 ML VIAL ONE (09:53)
[2024-01-08] MEDS: LIDOCAINE 2%/EPINEPHRINE 1:200,000 20 ML PF ONE (09:53)
[2024-01-08] MEDS: SODIUM CHLORIDE 0.9% PF INJ 10 ML VIAL ONE (09:53)
[2024-01-08] MEDS: fentaNYL citrate PF 100 MCG/2 ML VIAL ONE (09:54)
[2024-01-08] MEDS: miSOPROStoL 50 MCG TAB PO ONE (09:56)
[2024-01-08] MEDS ORDERED: NALOXONE HCL 0.4 MG/1 ML VIAL/CARP IV PRN (09:57)
[2024-01-08] MEDS ORDERED: ONDANSETRON INJ 2 MG/ML 2 ML VIAL IV PRN (09:57)
[2024-01-08] MEDS ORDERED: fentaNYL citrate PF 100 MCG/2 ML VIAL EPI PRN (09:57)
[2024-01-08] MEDS ORDERED: NALOXONE HCL 1 MG in SODIUM CHLORIDE 0.9% 1,000 ML IV PRN (09:57)
[2024-01-08] MEDS ORDERED: fentANYL 2 MCG/ML BUPIVacaine 0.125%-NSS 100ML BAG EPI PRN (09:57)
[2024-01-08] MEDS ORDERED: ROPIVACAINE 0.5% PF 5 MG/ML 20 ML VIAL EPI PRN (09:57)
[2024-01-08] MEDS ORDERED: LIDOCAINE 2% MPF LOCAL 5 ML VIAL EPI PRN (09:57)
[2024-01-08] MEDS ORDERED: BUPIVACAINE 0.25% PF 30 ML VIAL EPI PRN (09:57)
[2024-01-08] MEDS ORDERED: SODIUM CHLORIDE 0.9% PF INJ 10 ML VIAL EPI PRN (09:57)
[2024-01-08] MEDS ORDERED: ePHEDrine sulfate 50 MG/ML AMP IV PRN (09:57)
[2024-01-08] MEDS: OXYTOCIN 30 UNITS/NSS 30 UNITS/500 ML BAG IV PRN (10:05)
[2024-01-08] MEDS ORDERED: DIPHTHER/TETAN/PERTUS Vaccine (Tdap, Adol/Adult) 0.5mL IM ONE (16:59)
[2024-01-08] MEDS ORDERED: HYDROCORTISONE ACETATE 25 MG SUPP PR PRN (16:59)
[2024-01-08] MEDS ORDERED: bisacodyL 10 MG SUPP PR PRN (16:59)
[2024-01-08] MEDS ORDERED: ACETAMINOPHEN W/CODEINE #3 1 TAB PO PRN (16:59)
--- NOTE | 2024-01-08 17:07 | Delivery Summary ---
Vaginal Delivery Summary Date of Service January 08, 2024 Vaginal Delivery Summary Patient's been followed in the office for care and delivery. Was admitted with a history of irving rupture of the membranes at 40 weeks and 4 days gestation. She arrived at the hospital she was 4 cm dilated. And having active uterine contractions which she rated as a 7 out of 10 in pain scale. She requested and received epidural anesthesia. She obtained a good result from the epidural anesthesia. Was then augmented with IV Pitocin. However she began to have some bradycardia and the Pitocin was stopped. She pushed for approximately 2 hours. During her pushing no Pitocin was used. heart rate tracing at time did not recover from 1 contraction to the other. If the heart rate did not recover we did not push with the next contraction. We only pushed when the heart rate was above 100 at least sometime between to continue contractions. Eventually she pushed out a live female via direct occiput anterior position over an intact perineum. A lot of meconium was noted at this time. Infant was suctioned through the mouth and the nose. Nuchal cord was reduced over the head. Shoulders were delivered with without difficulty. Cord was allowed to pulse for 1 minute. Cord was then clamped cut by the father. Cord blood was taken. With IV Pitocin running the placenta was removed intact. Inspection of the perineum revealed a second-degree vaginal laceration. This laceration was repaired anatomically. The vaginal mucosa was approximated out to beyond the hymenal ring. 2 deep sutures were used to approximate the perineal body. A deep suture was used to approximate the bulbocavernosus muscle. And a suture was placed horizontally above the rectal sphincter capsule. A running subcuticular suture was used to approximate the perineal skin edges. Vaginal examination revealed no hematoma formation. 800 mcg of Cytotec was placed rectally. Patient tolerated the procedure well. Calculated blood loss was 152 mL.
[2024-01-08] MEDS: miSOPROStoL 200 MCG TAB PR ONE (17:25)
[2024-01-08] MEDS: BENZOCAINE 20% SPRY 85 APPLN/85 GM CAN EXT PRN (17:25)
[2024-01-08] MEDS: IBUPROFEN 600 MG TAB PO PRN (17:26)
[2024-01-08] MEDS: oxyCODONE/ACETAMINOPHEN 5mg/325mg TAB PO PRN (17:26)
[2024-01-08] MEDS: fentaNYL citrate PF 100 MCG/2 ML VIAL EPI STA (17:30)
[2024-01-08] MEDS: ePHEDrine sulfate 50 MG/ML AMP ONE (17:30)
[2024-01-08] MEDS: BUPIVACAINE 0.25% PF 30 ML VIAL EPI STA (17:30)
[2024-01-08] MEDS: LIDOCAINE 2%/EPINEPHRINE 1:200,000 20 ML PF EPI STA (17:30)
[2024-01-08] MEDS: SODIUM CHLORIDE 0.9% PF INJ 10 ML VIAL EPI STA (17:31)
--- NOTE | 2024-01-08 17:39 | Anesthesia Procedure Note ---
Date of Service January 08, 2024 Anesthesia Post Epidural Note Vital Signs Vital Signs: Temp Pulse Resp BP Pulse Ox 36.8 C 83 18 117/69 92 01/08/24 17:00 01/08/24 17:29 01/08/24 17:30 01/08/24 17:29 01/08/24 16:31 Pain Intensity Lower Abdomen: Pain Intensity: 5 Notes Mental Status: alert / awake / arousable and participated in evaluation Nausea / Vomiting: adequately controlled Pain: adequately controlled Airway Patency, RR, SpO2: stable & adequate BP & HR: stable & adequate Hydration State: stable & adequate Neuraxial Anesthesia: was administered and sensory block is resolving Anesthetic Complications: no major complications apparent Epidural: Removed without complications and With tip intact
[2024-01-08] MEDS: DOCUSATE SODIUM 100 MG CAP PO SCH (20:53)
[2024-01-09 06:37] LABS: Hematocrit (blood only) 32.4 % (37.0-47.0); Hemoglobin 11.1 g/dl (12.0-16.0); Mean Corpuscular Hemoglobin 29.2 pg (25.0-34.0); Mean Corpuscular Hgb Conc 34.3 g/dL (32.0-36.0); Mean Corpuscular Volume 85.3 fL (80.0-100.0); Mean Platelet Volume 12.7 fL (9.4-12.4); Platelet Count 125 K/uL (130-400); RDW Coefficient of Variation 14.1 % (11.5-14.5); RDW Standard Deviation 43.7 fL (36.4-46.3); White Blood Count 13.01 K/ul (4.8-10.8)
[2024-01-09] MEDS: PRENATAL VITAMIN 1 TAB PO SCH (08:59)
[2024-01-09] MEDS: ACETAMINOPHEN 325 MG TAB PO PRN (10:08)
--- NOTE | 2024-01-09 10:47 | Obstetrical Progress Note ---
Date of Service January 09, 2024 Subjective Ambulation: ambulating normally Voiding: no voiding problems Passing Gas:: Yes Diet Tolerance:: regular diet Feeding Type:: breast feeding Current Pain Level(1-10): 0 doing well Physical Exam Constitutional WD/WN, vitals as above Gastrointestinal (Abdomen) Inspection/Auscultation: abdomen normal to inspection abdomen soft and non-tender fundus firm below U Musculoskeletal Extremities: extremities normal to inspection Skin no rashes, warm and dry Neurologic patellar DTR's 2+ bilat, sensation intact Psychiatric A+Ox3, euthymic affect Results & Data Vital Signs (Past 12 Hours) Vital Signs Temp Pulse Resp BP Pulse Ox O2 Del Method 01/09/24 07:30 36.7 C 79 16 111/70 100 Room Air 01/09/24 03:30 36.7 C 88 20 107/71 99 Room Air 01/09/24 00:28 37.0 C 85 16 124/77 97 Room Air Laboratory Results 01/08/24 01/09/24 07:12 06:07 WBC 9.43 13.01 H RBC 4.20 3.80 L Hgb 12.3 11.1 L Hct 36.3 L 32.4 L MCV 86.4 85.3 MCH 29.3 29.2 MCHC 33.9 34.3 RDW Std Deviation 43.4 43.7 RDW Coeff of Edie 14.0 14.1 Plt Count 138 125 L MPV 12.3 12.7 H
[2024-01-10 06:49] LABS: Hematocrit (blood only) 31.8 % (37.0-47.0); Hemoglobin 10.8 g/dl (12.0-16.0)
[2024-01-10] MEDS: bisacodyL 5 MG TABEC PO SCH (07:11)
[2024-01-10 09:36] VITALS: BP 113/73; PULSE 84; RESP 20; TEMP 97.5; O2SAT 99
== END 2024-01-10 12:15 | disposition home or self-care (01) | DRG 807 ==
LOC: OPB 06:16 → 4S1 06:21 → 4E2 19:55